=== PATIENT | male | born 1950 | race Two or more races ===

== ENCOUNTER 2023-08-07 11:30 | Outpatient (AMB) | payer MEDICAID, SELFPAY ==
--- NOTE | 2023-08-07 11:02 | HO.NEPHOV ---
Intake Vital Signs 08/07/23 11:07 Height 5 ft 4 in Weight 214 lb 4 oz BMI 36.8 BP 110/70 Blood Pressure Location Rt brachial Position Sitting Pulse 75 Pulse Source Pulse Oximeter Pulse Oximetry (%) 96 Oxygen Delivery Method Room Air Intake Visit Reasons: CKD - Confirmed appt Advertising Copy Writer Required: Yes Advertising Copy Writer Language: Lao Advertising Copy Writer Name: HEBERT - pt friend Accompanied by: Friend Allergies No Known Allergies Allergy (Verified 08/07/23 11:02) HPI HPI Comments History of Present Illness Details 72-year-old man with a history of diabetes mellitus hypertension and BPH is being seen for chronic disease. In 2020 he had serum creatinine 1.4. In December of 2021 creatinine bumped up a 3.9 with a potassium of 5.9. He was found to have BPH and underwent TURP. Serum creatinine is improved and recent creatinine is 2.2. Is here with his son. Today has no new complaints other than vague back pain on and off especially at night. No urinary symptoms. No dysuria urgency or hematuria. No leg edema. Assessment & Plan Assessment & Plan (1) CKD (chronic kidney disease) stage 3, GFR 30-59 ml/min: Code(s): N18.30 - Chronic kidney disease, stage 3 unspecified Plan: Chronic kidney disease due to the combination of obstructive uropathy and underlying hypertension peptic disease. The mild bump in the creatinine may be due to the use of her increased dose of Florentino inhibitors. However he needs a same dose for renal protection especially with microalbuminuria. I would continue with the Florentino inhibitor and monitor renal function periodically. Our nephrologists including NSAIDs. I have discussed this with the patient and his son. He would benefit from a SGLT 2 inhibitor. He has a history of BPH. Watch for urinary retention. (2) Diabetes mellitus: Comment: Goals of maintaining hemoglobin A1c less than 7%. Code(s): E11.9 - Type 2 diabetes mellitus without complications (3) HTN (hypertension): Comment: Blood pressure is well controlled. No orthostatic changes. Goal is met and blood pressure is 130/80. Continued FLORENTINO-inhibitor for renal protection. Avoid hypotension. Code(s): I10 - Essential (primary) hypertension Orders: Orders Creatinine Urine 1 Month N18.30 - Chronic kidney disease, stage 3 unspecified Creatinine 1 Month N18.30 - Chronic kidney disease, stage 3 unspecified Calcium 1 Month N18.30 - Chronic kidney disease, stage 3 unspecified Total Protein Urine Random 1 Month N18.30 - Chronic kidney disease, stage 3 unspecified Electrolytes 1 Month N18.30 - Chronic kidney disease, stage 3 unspecified Blood Urea Nitrogen 1 Month N18.30 - Chronic kidney disease, stage 3 unspecified PTHI 1 Month N18.30 - Chronic kidney disease, stage 3 unspecified Coding Level of Care Code Est Pt Level 4 (09932) Diagnoses CKD (chronic kidney disease) stage 3, GFR 30-59 ml/min N18.30 Diabetes mellitus E11.9 HTN (hypertension) I10 [facility] Medical History (Updated 08/07/23 @ 14:22 by Lul Mcgill MD) Mixed hyperlipidemia Type 2 diabetes mellitus Lower urinary tract infection Dyslipidemia Chronic fatigue Adenomatous colon polyp Family History Mother Hypertension Brother CKD (chronic kidney disease) Social History Alcohol intake: never Patient Tobacco Use Status: Current everyday Tobacco user Tobacco use type: Cigarette Cigarette Packs Per Day: 1 Cigarettes Per Day: 20 Results Reviewed Results Reviewed: As of 06/30/2023 hemoglobin 13.1 BUN 37 creatinine 2.2 potassium 5.1 calcium 9.6 LFTs were normal serum sodium 141 urine microalbumin creatinine ratio was 218.
[2023-08-07 11:07] VITALS: BP 110/70; PULSE 75; O2SAT 96; BMI 36.8
== END 2023-08-07 11:36 | disposition home or self-care (01) ==
LOC: HO.HKAS 11:30
PROVIDERS: PCP Internal Medicine; Visit Provider Internal Medicine Hypertension Specialist
DX: N18.30 Chronic kidney disease, stage 3 unspecified (principal); E11.9 Type 2 diabetes mellitus without complications; I12.9 Hypertensive chronic kidney disease with stage 1 through stage 4 chronic kidney disease, or unspecified chronic kidney disease
CPT/HCPCS: 99214

== ENCOUNTER → 2023-08-07 11:30 | Outpatient (BNVA) | payer MEDICARE, MEDICAID, SELFPAY | PROVIDERS: PCP Internal Medicine; Visit Provider Internal Medicine Hypertension Specialist | DX: N18.30 Chronic kidney disease, stage 3 unspecified (principal) ==

== ENCOUNTER 2023-11-01 14:13 | Outpatient (AMB) | payer MEDICAID, SELFPAY ==
[2023-11-01 14:14] VITALS: BP 112/54; PULSE 100; O2SAT 96; BMI 36.3
--- NOTE | 2023-11-01 14:14 | HO.NEPHOV ---
HPI HPI Comments History of Present Illness Details 72-year-old man with a history of diabetes mellitus hypertension and BPH is being seen for chronic disease. In 2020 he had serum creatinine 1.4. In December of 2021 creatinine bumped up a 3.9 with a potassium of 5.9. He was found to have BPH and underwent TURP. Serum creatinine is improved and recent creatinine is 2.2. Is here with his son. Today has no new complaints other than vague back pain on and off especially at night. No urinary symptoms. No dysuria urgency or hematuria. No leg edema. [facility] Medical History (Updated 08/07/23 @ 14:22 by Lul Mcgill MD) Mixed hyperlipidemia Type 2 diabetes mellitus Lower urinary tract infection Dyslipidemia Chronic fatigue Adenomatous colon polyp Surgical History (Updated 11/01/23 @ 14:19 by April Romero) Hx of cataract surgery (~09/2023) Family History Mother Hypertension Brother CKD (chronic kidney disease) Social History Alcohol intake: never Patient Tobacco Use Status: Current everyday Tobacco user Tobacco use type: Cigarette Cigarette Packs Per Day: 1 Cigarettes Per Day: 20 Vital Signs 11/01/23 14:14 Height 5 ft 4 in Weight 211 lb 6 oz BMI 36.3 BP 112/54 Blood Pressure Location Lt brachial Position Sitting Pulse 100 Pulse Source Pulse Oximeter Pulse Oximetry (%) 96 Oxygen Delivery Method Room Air Physical Exam Vital Signs: Last Vital Signs Pulse 100 11/01/23 14:14 BP 112/54 11/01/23 14:14 Pulse Ox 96 11/01/23 14:14 Oxygen Delivery Method Room Air 11/01/23 14:14 BMI result Body Mass Index 36.3 Const General: comfortable Nutritional Appearance: well nourished Orientation/consciousness: patient oriented x3 HEENT Head: No normal to inspection Mouth: moist mucous membranes Neck Neck: Yes supple and Yes no JVD Resp Auscultation: clear to auscultation bilaterally, no rales and rub present Cardio Jugular venous distension: no JVD Palpation: no palpable S3 and no palpable S4 Heart sounds: no rubs GI Palpation (GI): Soft to palpation and nontender Percussion: No Fluid wave present General: Yes no CVA tenderness Back/Spine/Pelvis Back: no CVA tenderness Skin General skin exam: no rashes or lesions noted Neuro General: patient oriented x3 Extrem General: Yes no pedal edema and No clubbing Assessment & Plan Assessment & Plan (1) CKD (chronic kidney disease) stage 3, GFR 30-59 ml/min: Code(s): N18.30 - Chronic kidney disease, stage 3 unspecified Plan: Chronic kidney disease due to the combination of obstructive uropathy and underlying hypertension Kidney disease. The mild bump in the creatinine may be due to the use of her increased dose of Florentino inhibitors. However he needs for renal protection especially with microalbuminuria. I would continue with the Florentino inhibitor and monitor renal function periodically. Avoid NSAIDs. He would benefit from a SGLT 2 inhibitor. He has a history of BPH. Watch for urinary retention. REcent PTH was 41 (2) Diabetes mellitus: Comment: Goals of maintaining hemoglobin A1c less than 7%. Code(s): E11.9 - Type 2 diabetes mellitus without complications Plan: . (3) HTN (hypertension): Comment: Blood pressure is well controlled. No orthostatic changes. Goal is met and blood pressure is 130/80. Continued FLORENTINO-inhibitor for renal protection. Avoid hypotension. Code(s): I10 - Essential (primary) hypertension Plan: BP well controlled LOw salt diet Orders: Orders Basic Metabolic Panel Today I10 - Essential (primary) hypertension, N18.30 - Chronic kidney disease, stage 3 unspecified Coding Level of Care Code Est Pt Level 4 (17362) Diagnoses CKD (chronic kidney disease) stage 3, GFR 30-59 ml/min N18.30 Diabetes mellitus E11.9 HTN (hypertension) I10 Results Reviewed Nephrology Results: No Data to Display
== END 2023-11-01 14:28 | disposition home or self-care (01) ==
LOC: HO.HKAS 14:13
PROVIDERS: PCP Internal Medicine; Visit Provider Internal Medicine Hypertension Specialist
DX: N18.30 Chronic kidney disease, stage 3 unspecified (principal); E11.9 Type 2 diabetes mellitus without complications; I10 Essential (primary) hypertension
CPT/HCPCS: 99214

== ENCOUNTER → 2023-11-01 14:13 | Outpatient (BNVA) | payer MEDICARE, MEDICAID, SELFPAY | PROVIDERS: PCP Internal Medicine; Visit Provider Internal Medicine Hypertension Specialist | DX: E11.22 Type 2 diabetes mellitus with diabetic chronic kidney disease (principal); I12.9 Hypertensive chronic kidney disease with stage 1 through stage 4 chronic kidney disease, or unspecified chronic kidney disease; N18.30 Chronic kidney disease, stage 3 unspecified | CPT/HCPCS: 99212 ==

== ENCOUNTER 2023-11-01 14:31 | Outpatient (REF) | payer MEDICARE, MEDICAID, SELFPAY ==
[2023-11-01 17:56] LABS: Creatinine Urine 172.51 mg/dL; Total Protein Urine Random 38 mg/dL
[2023-11-01 17:58] LABS: Anion Gap 11; Blood Urea Nitrogen 31 mg/dL; Carbon Dioxide 24 mmol/L; Chloride 113 mmol/L; Estimated Glomerular Filt Rate 30; Glucose Random 165 mg/dL; Potassium 4.9 mmol/L; Sodium 143 mmol/L
== END 2023-11-01 14:32 | disposition home or self-care (01) ==
LOC: HO.HKASLDS 14:31
PROVIDERS: Visit Provider Internal Medicine Hypertension Specialist
DX: I12.9 Hypertensive chronic kidney disease with stage 1 through stage 4 chronic kidney disease, or unspecified chronic kidney disease (principal); N18.30 Chronic kidney disease, stage 3 unspecified
CPT/HCPCS: 36415; 80048; 82570; 84156

== ENCOUNTER 2024-05-29 15:11 | Outpatient (AMB) | payer MEDICARE, MEDICAID, SELFPAY ==
[2024-05-29 15:20] VITALS: BP 100/50; PULSE 82; O2SAT 95; BMI 33.0
--- NOTE | 2024-05-29 15:20 | HO.NEPHOV ---
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 Accompanied by: Self / Same As Patient Allergies No Known Allergies Allergy (Verified 05/29/24 15:22) Medication List - Last Reconciled 05/29/24 by Lul Mcgill MD albuterol sulfate 90 mcg/actuation 2 puffs inhalation Q6H fenofibrate nanocrystallized 145 mg PO DAILY finasteride 5 mg PO DAILY lisinopril 10 mg PO DAILY metformin 500 mg PO BIDWMEAL metoprolol succinate ER 25 mg PO DAILY tamsulosin 0.4 mg orally BID; ON LICENSE OF [facility] Medical History (Updated 05/29/24 @ 15:29 by Lul Mcgill MD) Mixed hyperlipidemia Type 2 diabetes mellitus Lower urinary tract infection Dyslipidemia Chronic fatigue Adenomatous colon polyp Surgical History Hx of cataract surgery (~09/2023) Family History Mother Hypertension Brother CKD (chronic kidney disease) Social History Alcohol intake: never Patient Tobacco Use Status: Current everyday Tobacco user Tobacco use type: Cigarette Cigarette Packs Per Day: 1 Cigarettes Per Day: 20 Physical Exam Vital Signs: Last Vital Signs Pulse 82 05/29/24 15:20 BP 100/50 05/29/24 15:20 Pulse Ox 95 05/29/24 15:20 Oxygen Delivery Method Room Air 05/29/24 15:20 BMI result Body Mass Index 33.0 Results Reviewed Nephrology Results: Sodium 143 mmol/L 11/01/23 Potassium 4.9 mmol/L 11/01/23 Chloride 113 mmol/L 11/01/23 Carbon Dioxide 24 mmol/L 11/01/23 BUN 31 mg/dL 11/01/23 Creatinine 2.18 mg/dL 11/01/23 Calcium 9.0 mg/dL 11/01/23 Urine Creatinine 172.51 mg/dL 01/31/24 Assessment & Plan Assessment & Plan (1) CKD (chronic kidney disease) stage 3, GFR 30-59 ml/min: Code(s): N18.30 - Chronic kidney disease, stage 3 unspecified Category: Medical Plan: Chronic kidney disease due to the combination of obstructive uropathy and underlying hypertension Kidney disease. The mild bump in the creatinine may be due to the use of her increased dose of Florentino inhibitors. However he needs for renal protection especially with microalbuminuria. I would continue with the Florentino inhibitor and monitor renal function periodically. Avoid NSAIDs. He would benefit from a SGLT 2 inhibitor. He has a history of BPH. Watch for urinary retention. Check USG due to back discomfort REcent PTH was 41 (2) Diabetes mellitus: Comment: Goals of maintaining hemoglobin A1c less than 7%. Code(s): E11.9 - Type 2 diabetes mellitus without complications Category: Medical Plan: . (3) HTN (hypertension): Code(s): I10 - Essential (primary) hypertension Category: Medical Plan: BP is low DEcrease LISINOPRIL from 20 to 10 mg Orders: Orders US renal BI Today N18.30 - Chronic kidney disease, stage 3 unspecified Basic Metabolic Panel Today N18.30 - Chronic kidney disease, stage 3 unspecified Coding Level of Care Code Est Pt Level 4 (07444) Diagnoses CKD (chronic kidney disease) stage 3, GFR 30-59 ml/min N18.30 Diabetes mellitus E11.9 HTN (hypertension) I10
== END 2024-05-29 15:32 | disposition home or self-care (01) ==
LOC: HO.HKAE 15:11
PROVIDERS: PCP Internal Medicine; Visit Provider Internal Medicine Hypertension Specialist
DX: N18.30 Chronic kidney disease, stage 3 unspecified (principal); E11.9 Type 2 diabetes mellitus without complications; I10 Essential (primary) hypertension
CPT/HCPCS: 99214

== ENCOUNTER → 2024-05-29 15:11 | Outpatient (BNVA) | payer MEDICARE, MEDICAID, SELFPAY | PROVIDERS: PCP Internal Medicine; Visit Provider Internal Medicine Hypertension Specialist | DX: I12.9 Hypertensive chronic kidney disease with stage 1 through stage 4 chronic kidney disease, or unspecified chronic kidney disease (principal); E11.22 Type 2 diabetes mellitus with diabetic chronic kidney disease; N18.30 Chronic kidney disease, stage 3 unspecified | CPT/HCPCS: 99212 ==

== ENCOUNTER 2024-10-30 14:44 | Outpatient (AMB) | payer MEDICARE, MEDICAID, SELFPAY ==
[2024-10-30 14:38] VITALS: BP 122/72; PULSE 82; O2SAT 98; BMI 34.7
--- NOTE | 2024-10-30 14:38 | HO.NEPHOV_ITS ---
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 In 2020 he had serum creatinine 1.4. In December of 2021 creatinine bumped up a 3.9 with a potassium of 5.9. He was found to have BPH and underwent TURP. Serum creatinine is improved and recent creatinine is 2.2. Today has no new complaints other than vague back pain on and off especially at night- no change since last visit. No urinary symptoms. No dysuria urgency or hematuria. No leg edema. No specific complaints today. PEND[facility] SALE TO [facility] Medical History (Updated 05/29/24 @ 15:29 by Lul Mcgill MD) Mixed hyperlipidemia Type 2 diabetes mellitus Lower urinary tract infection Dyslipidemia Chronic fatigue Adenomatous colon polyp Surgical History Hx of cataract surgery (~09/2023) Family History Mother Hypertension Brother CKD (chronic kidney disease) Social History Alcohol intake: never Patient Tobacco Use Status: Current everyday Tobacco user Tobacco use type: Cigarette Cigarette Packs Per Day: 1 Cigarettes Per Day: 20 Physical Exam Vital Signs: Last Vital Signs Pulse 82 10/30/24 14:38 BP 122/72 01/29/25 14:38 Pulse Ox 98 10/30/24 14:38 Oxygen Delivery Method Room Air 10/30/24 14:38 BMI result Body Mass Index 34.7 Const General: comfortable Nutritional Appearance: well nourished Orientation/consciousness: patient oriented x3 HEENT Head: No normal to inspection Mouth: moist mucous membranes Neck Neck: Yes supple and Yes no JVD Resp Auscultation: clear to auscultation bilaterally, no rales and rub present Cardio Jugular venous distension: no JVD Palpation: no palpable S3 and no palpable S4 Heart sounds: no rubs GI Palpation (GI): Soft to palpation and nontender Percussion: No Fluid wave present General: Yes no CVA tenderness Back/Spine/Pelvis Back: no CVA tenderness Skin General skin exam: no rashes or lesions noted Neuro General: patient oriented x3 Extrem General: Yes no pedal edema and No clubbing Results Reviewed Nephrology Results: Sodium 143 mmol/L 11/01/23 Potassium 4.9 mmol/L 11/01/23 Chloride 113 mmol/L 11/01/23 Carbon Dioxide 24 mmol/L 11/01/23 BUN 31 mg/dL 11/01/23 Creatinine 2.18 mg/dL 11/01/23 Calcium 9.0 mg/dL 11/01/23 Urine Creatinine 172.51 mg/dL 11/01/23 Assessment & Plan Assessment & Plan (1) CKD (chronic kidney disease) stage 3, GFR 30-59 ml/min: Code(s): N18.30 - Chronic kidney disease, stage 3 unspecified Category: Medical Plan: Chronic kidney disease due to the combination of obstructive uropathy and underlying hypertension Kidney disease. Overall renal function stable. Recent ultrasonogram did not reveal any evidence of obstruction. Keep AARON inhibitors for renal protection especially with microalbuminuria. monitor renal function periodically. Avoid NSAIDs. He would benefit from a SGLT 2 inhibitor. Recent ultrasonogram revealed a left-sided cyst. Possibility of a mild complex cyst. We will repeat ultrasonogram in the next 6-12 months for follow-up. If there is any changes in the cyst I would for him for urology. (2) Diabetes mellitus: Comment: Goals of maintaining hemoglobin A1c less than 7%. Code(s): E11.9 - Type 2 diabetes mellitus without complications Category: Medical Plan: . (3) HTN (hypertension): Code(s): I10 - Essential (primary) hypertension Category: Medical Plan: Blood pressure is well controlled Continue LISINOPRIL 10 mg daily Stay on low-sodium diet Orders: Orders Basic Metabolic Panel 3 Months N18.30 - Chronic kidney disease, stage 3 unspecified Complete Blood Count no Diff 3 Months N18.30 - Chronic kidney disease, stage 3 unspecified Coding Level of Care Code Est Pt Level 4 (62270) Diagnoses CKD (chronic kidney disease) stage 3, GFR 30-59 ml/min N18.30 Diabetes mellitus E11.9 HTN (hypertension) I10
--- OUTSIDE RECORDS SUMMARY | 2024-10-30 16:56 | XMS_ITS | Clinical Summary ---
Author Organization [facility] Address [address] [place] [address] Phone Care Team Providers Care Rotary Soil Stabilizer Name Role Phone Rakesh Marie MD Primary Care Provider Unavail able Allergies No known active allergies Medications finasteride (PROSCAR) 5 MG tablet Take 5 mg by mouth in the morning. 09/30/2016 Active tamsulosin (FLOMAX) 0.4 MG 24 hr capsule Take 0.4 mg by mouth 1 (one) time each day Active fenofibrate (TRICOR) 145 MG tablet Take 145 mg by mouth 1 (one) time each day Active metoprolol succinate XL (TOPROL XL) 25 MG 24 hr tablet Take 25 mg by mouth 1 (one) time each day Do not crush or chew. Active metFORMIN (GLUCOPHAGE) 500 MG tablet Take 1 tablet (500 mg total) by mouth in the morning and 1 tablet (500 mg total) in the evening. Take with meals. 60 tablet 11 05/17/2022 Active Active Problems Problem Noted Date Diagnosed Date Microalbuminuria 11/02/2016 Essential hypertension 09/25/2016 Hyperosmolarity 09/25/2016 Resolved Problems Problem Noted Date Diagnosed Date Resolved Date Adenomatous polyp of colon 08/12/2020 0 02/24/2022 Overview (02/24/2022): Last Assessment & Plan: A colonoscopy will be scheduled based on current indication. The indications, prep, alternatives and the procedure were thoroughly explained. There is no contraindication to colonoscopy. All questions were answered. The potential risks including but not limited to bleeding, infection, and perforation were also explained. Covid screening per protocol. Will call daughter to schedule Lesion of conjunctiva 12/07/20162021 Mixed hyperlipidemia 11/02/2016 022 Benign prostatic hyperplasia 09/28/2016 02/24/2022 Fever 09/28/2016 02/24/2022 Metabolic acidosis, increased anion gap (IAG) 09/28/20 16 02/24/2022 Hyperglycemia 09/27/2016 02/24/2022 Type 2 diabetes mellitus 09/27/2016 Chronic fatigue 09/25/2016 02/24/2022 Dyslipidemia 09/25/2016 02/24/2022 Immunizations Name Administration Dates Next Due Influenza (IM) Preservative Free 09/30/2016 Influenza Split High Dose Preservative Free IM 0 06/27/2017 Family History Medical History Relation Comments Kidney disease Brother Hypertension Mother Relation Status Comments Brother Father Mother Social History Tobacco Use Types Packs/Day Years Used Date Smoking Tobacco: Every Day Cigarettes Smokeless Tobacco: Never Tobacco Cessation:Ready to Q uit: Not Asked; Counseling Given: Not Answered Alcohol Use Standard Drinks/Week Comments Never 0 (1 standard drink = 0.6 oz pur e alcohol) Sex and Gender Information Value Date Recorded Sex Assigned at Not on file Legal Sex Male 12:49 PM EDT Gender Identity Not on file Sexual Orientation Not on file Last Filed Vital Signs Vital Sign Reading Time Taken Comments Blood Pressure 120/68 09/06/2022 2:39 PM EST Pulse 98 09/06/2022 2:39 PM EST Temperature - - Respiratory Rate - - Oxygen Saturation 94% 09/06/2022 2:39 PM EST Inhaled Oxygen Concentration - - Weight 90.7 kg (200 lb) 05/17/2022 3:57 PM EDT Height - - Body Mass Index - - Plan of Treatment Health Maintenance Due Date Last Done Comments Pneumococcal Vaccine: 65+ Years (1 of 2 - PCV) 1956 Colorectal Cancer Screening: Annual FOBT 1998 Colorectal Cancer Screening: Colonoscopy 1998 Colorectal Cancer Screening: Sigmoidoscopy 1998 Influenza Vaccine (#1) 2024 7, 09/30/2016 Hepatitis B Vaccine Aged Out No longe r eligible based on patient's age to complete this topic Insurance MEDICAID [place] [employer] MEDICARE [place]ICAID [place] [employer] MEDICARE Care Teams Rotary Soil Stabilizer Relationship Specialty Start Date End Date Rakesh Marie MD [address] [place] [address] PCP - General Internal Medicine 02/11/22
--- OUTSIDE RECORDS SUMMARY | 2024-10-30 16:56 | XMS_ITS | Clinical Summary ---
Author Organization Formerly [facility] Address [address] [place] [address] Care Team Providers Care Network Engineer Administrator Name Role Phone Raeksh Marie MD Primary Care Provider [phone] Rakesh Marie MD Unavailable [phone] Allergies No known active allergies Medications Medication Sig Dispensed Refills Start Date End Date Status albuterol (PROVENTIL HFA; VENTOLIN HFA) 108 (90 BASE) MCG/ACT inhalerIndications:Hy perglycemia Inhale 2 puffs 4 times daily (every 6 hours) as needed for wheezing. 1 Inhaler 1 09/30/2016 Active metFORMIN (GLUCOPHAGE) 1000 MG tabletIndications:Hyp erglycemia Take 1 tablet (1,000 mg total) by mouth 2 (two) times a day with meals. 60 tablet 1 09/30/2016 Active atenolol (TENORMIN) 50 MG tabletIndications:Hyp erglycemia Take 1 tablet (50 mg total) by mouth daily. 30 tablet 0 09/30/2016 Active fenofibrate (TRICOR) 145 MG tabletIndications:Hyp erglycemia Take 1 tablet (145 mg total) by mouth daily. 30 tablet 0 09/30/2016 Active levoFLOXacin (LEVAQUIN) 500 MG tabletIndications:Hyp erglycemia Take 1 tablet (500 mg total) by mouth every 24 hours around the clock. 6 tablet 0 09/30/2016 Active finasteride (PROSCAR) 5 MG tabletIndications:Hyp erglycemia Take 1 tablet (5 mg total) by mouth daily. 30 tablet 0 09/30/2016 Active tamsulosin (FLOMAX) 0.4 MG capsuleIndications:Hy perglycemia Take 1 capsule (0.4 mg total) by mouth every evening after dinner. 30 capsule 0 09/30/2016 Active sitaGLIPtin (JANUVIA) 100 MG tabletIndications:Hyp erglycemia Take 1 tablet (100 mg total) by mouth daily. 30 tablet 0 09/30/2016 Active insulin glargine (LANtus SOLOSTAR) 100 units/mL pen injectionIndications: Hyperglycemia Inject 0.24 mL (24 Units total) under the skin nightly. 7.2 mL 1 09/30/2016 Active choline fenofibrate (TRILIPIX) 45 MG capsule Take 45 mg by mouth daily. Active tpyahi-ahvnjvsln-xjwd esium sulfates (Suprep Bowel Prep Kit) 17.5-3.13-1.6 GM/177ML Solution solutionIndications:A denomatous polyp of colon, unspecified part of colon Take 177 mL by mouth twice daily (every 12 hours). 177 mL 08/13/2020 Active Active Problems Problem Noted Date Diagnosed Date Adenomatous polyp of colon 08/12/2020 Assessment & Plan (08/13/2020 3:22 PM EST): A colonoscopy will be scheduled based on current indication. The indications, prep, alternatives and the procedure were thoroughly explained. There is no contraindication to colonoscopy. All questions were answered. The potential risks including but not limited to bleeding, infection, and perforation were also explained. Covid screening per protocol. Will call daughter to schedule Metabolic acidosis, increased anion gap 09/28/20 16 Essential hypertension 09/28/2016 BPH (benign prostatic hyperplasia) 09/28/2016 Hyperlipidemia 09/28/2016 Hyperglycemia 09/27/2016 Type 2 diabetes mellitus 09/27/2016 Resolved Problems Problem Noted Date Diagnosed Date Resolved Date Fever 09/28/2016 12/14/2023 Immunizations Name Administration Dates Next Due Influenza Inactivated/Split Preservative Free IM 09/30/2016 Family History Relation Name Status Comments Father Mother Social History Tobacco Use Types Packs/Day Years Used Date Smoking Tobacco: Every Day Cigarettes Smokeless Tobacco: Never Alcohol Use Standard Drinks/Week Comments No 0 (1 standard drink = 0.6 oz pur e alcohol) Sex and Gender Information Value Date Recorded Sex Assigned at Not on file Gender Identity Not on file Sexual Orientation Not on file Last Filed Vital Signs Vital Sign Reading Time Taken Comments Blood Pressure 112/64 08/13/2020 2:55 PM EST Pulse 64 09/30/2016 9:48 AM EST Temperature 35.9 ??C (96.7 ??F) 08/13/2020 2:55 PM ES T Respiratory Rate 15 10/24/2016 2:04 PM EST Oxygen Saturation 94% 09/30/2016 8:21 AM EST Inhaled Oxygen Concentration - - Weight 94.3 kg (208 lb) 08/13/2020 2:55 PM EST Height 165.1 cm (5' 5 ) 08/13/2020 2:55 PM EST Body Mass Index 34.61 08/13/2020 2:55 PM EST Plan of Treatment Health Maintenance Due Date Last Done Comments Hepatitis C Virus Screening 1949 Foot Exam 1959 Lipid Panel 1959 Ophthalmology Exam 1959 Microalbumin/Creatinine Ratio Urine 1967 DTaP/Tdap/Td Vaccines (1 - Tdap) 1968 Pneumococcal Vaccines 50+ (1 of 2 - PCV) 1968 Colonoscopy 1994 Zoster (Shingles) Vaccine (1 of 2) 1999 Hemoglobin A1C 03/29/2017 09/28/2016 Creatinine with GFR 09/30/2017 09/30/2016, 09/29/2016, 09/28/2016, Additional history exists Influenza Vaccine 05/02/2024 09/30/2016 COVID-19 Vaccine ( - 2023-25 season) 2024 RSV Vaccine 60 years and older and Patients (1 - 1-dose 75+ series) 2024 Hepatitis B Vaccines Aged Out No long er eligible based on patient's age to complete this topic Procedures Procedure Name Priority Date/Time Associated Diagnosis Comments BASIC METABOLIC PANEL Routine 09/30/2016 6:03 AM EST HEMOGLOBIN A1C Routine 09/28/2016 4:51 AM EST from Last 3 Months or Most Recently Relevant to Health Maintenance Results * Basic Metabolic Panel (09/30/2016 6:03 AM EST) Glucose 78 65 - 99 mg/dL [facility] Comment:Fasting: <100 mg/dL, Non-Fasting: <200 mg/dL (ADA 2005) Blood Urea Nitrogen (BUN) 16 8 - 21 mg/dL [facility] Creatinine 1.1 0.5 - 1.3 mg/dL [facility] eGFR 67 >59 [facility] Comment:MDRD in mL/min/1.73 sq meters. GFR - 81 >59 [facility] Comment:MDRD in mL/min/1.73 sq meters. Sodium 141 136 - 145 mmol/L [facility] Potassium 3.6 3.4 - 5.3 mmol/L [facility] Chloride 103 98 - 107 mmol/L [facility] CO2 24 22 - 33 mmol/L [facility] Anion Gap 14 7 - 17 [facility] Calcium 8.8 8.7 - 10.5 mg/dL [facility] BUN/Creatinine Ratio 15 10.0 - 25.0 Ratio [facility] Blood specimen (specimen) Blood specimen / Unknown 09/30/2016 6:03 AM EST 09/30/2016 6:49 AM EST Nayana Lozano MD LAB BLOOD ORDERABLE S [facility] * (ABNORMAL) Hemoglobin A1c (09/28/2016 4:51 AM EST) Hemoglobin A1C 12.0(H) <5.7 % [facility] Comment: A1c% ? Interpretation 5.7 - 6.0 ?Increase risk of diabetes 6.1 - 6.4 ?Higher risk of diabetes > or = 6.5 ?? Consistent with diabetes Diabetes Care, 33(Supp 1):S1-S61, 2010 Blood specimen (specimen) Blood specimen / Unknown 09/28/2016 4:51 AM EST 09/28/2016 5:14 AM EST Daisy Knutson MD LAB BLOOD ORDERABL ES [facility] from Last 3 Months or Most Recently Relevant to Health Maintenance Advance Directives * Full Code (Latest Code Status on File) Date Activated Date Inactivated Comments 09/28/2016 1:36 AM 09/30/2016 3:43 PM Care Teams Network Engineer Administrator Relationship Specialty Start Date End Date Rakesh Marie MD PCP - General 09/27/16 Rakesh Marie MD [address] [place] [address] PCP - APNCT [place] Medicare Attributed 10/02/23
--- OUTSIDE RECORDS SUMMARY | 2024-10-30 16:56 | XMS_ITS | Clinical Summary ---
Author Organization [address] Address [address] [place] [phone] Care Team Providers Care Manufacturing Controller Name Role Phone Rakesh Marie MD Primary Care Provider [phone] Allergies No known active allergies Medications albuterol (PROAIR HFA) 90 mcg/actuation HFAA Inhale 2 puffs into the lungs 4 (four) times daily as needed. 0 6 Active atenolol (TENORMIN) 50 MG tablet take 1 tablet by mouth once daily 0 6 Active blood sugar diagnostic (ONETOUCH ULTRA TEST) Strp TEST 4 TIMES DAILY 0 7 Active fenofibrate (TRICOR) 145 MG tablet take 1 tablet by mouth once daily 0 6 Active fenofibric acid - choline (TRILIPIX) 135 mg CpDR 0 7 Active finasteride (PROSCAR) 5 mg tablet take 1 tablet by mouth at bedtime 0 6 Active insulin glargine (LANTUS SOLOSTAR) 100 unit/mL (3 mL) InPn inject 16 units subcutaneously at bedtime (DISCARD EACH OPEN PEN AFTER 28 DAYS) 0 6 Active meloxicam (MOBIC) 15 MG tablet take 1 tablet by mouth once daily 0 6 Active metFORMIN (GLUCOPHAGE) 1000 MG tablet Take 500 mg by mouth 2 (two) times daily with breakfast and dinner. 0 7 Active pen needle, diabetic (BD INSULIN PEN NEEDLE UF MINI) 31 gauge x 3/16 Ndle use with LANTUS at bedtime 0 6 Active sitaGLIPtin (JANUVIA) 100 MG Tab take 1 tablet by mouth once daily 0 7 Active tamsulosin (FLOMAX) 0.4 mg Cp24 24 hr capsule take 1 capsule by mouth once daily 0 7 Active Active Problems Problem Noted Date Diagnosed Date Conjunctival lesion - Left Eye 12/07/2016 Immunizations Name Administration Dates Next Due Influenza, high-dose, split virus, trivalent,(65Yr+),injectable, preservative free 06/27/2017 Family History Medical History Relation Name Comments Abnormal EKG Mother Hypertension Mother Relation Name Status Comments Mother Social History Tobacco Use Types Packs/Day Years Used Date Smoking Tobacco: Every Day Cigarettes Smokeless Tobacco: Never Alcohol Use Standard Drinks/Week Comments No 0 (1 standard drink = 0.6 oz pur e alcohol) Sex and Gender Information Value Date Recorded Sex Assigned at Not on file Legal Sex Male 11:52 AM EST Gender Identity Not on file Sexual Orientation Not on file Last Filed Vital Signs Vital Sign Reading Time Taken Comments Blood Pressure 110/66 01/11/2017 10:34 AM EDT Pulse 65 01/11/2017 10:34 AM EDT Temperature 36.7 ??C (98.1 ??F) 01/11/2017 10:34 AM E DT Respiratory Rate 19 01/11/2017 10:34 AM EDT Oxygen Saturation 98% 01/11/2017 10:34 AM EDT Inhaled Oxygen Concentration - - Weight 92.6 kg (204 lb 3.2 oz) 01/11/2017 10:34 AM EDT Height 165 cm (5' 4.96 ) 12/07/2016 10:25 AM EST Body Mass Index 34.02 12/07/2016 10:25 AM EST Plan of Treatment Health Maintenance Due Date Last Done Comments HIV screening 1962 Hepatitis C screening 1967 Tetanus adult (Td q 10,TDAP once) 1969 Lipid disorder screening 1989 Colon cancer screening, Colonoscopy 1994 Diabetes screening 1994 Shingles vaccine (Shingrix) (1 of 2 - Shingrix (RZV) 2 Dose Standard Series) 1999 Pneumo Vaccine 65+ (1 of 1 - PCV) 2014 Influenza vaccine 05/02/2024 06/27/2017 Covid-19 vaccine series ( - 2023-25 season) 2024 RSV Discussion (1 - 1-dose 7 5+ series) 2024 Meningococcal Vaccine Aged Out No mayra ginger eligible based on patient's age to complete this topic Insurance [place] Member Subscriber Plan / Payer (Ef fective 2016-Present) Name:Basia Juan Member ID:[id number] Relation to Subscriber:Self Name:Basia Juan Subscriber ID:[id number] Payer ID:[id number] Group ID:Not on file Type:Not on file Address: [address] [address] [place] Care Teams Manufacturing Controller Relationship Specialty Start Date End Date Rakesh Marie MD [address] [place] [address] PCP - General Internal Medicine 11/30/16
--- OUTSIDE RECORDS SUMMARY | 2024-10-30 16:56 | XMS_ITS | Encounter Summary ---
Author Organization [facility] Address [address] [place] [address] Care Team Providers Care Coating And Embossing Unit Operator Name Role Phone Rakehs Marie MD Primary Care Provider [phone] Rakesh Marie MD Unavailable [phone] Encounter Details Date Type Department Care Team (Late st Contact Info) Description 10/25/2016 Scanned Document [facility] [address] [place] [phone] Provider, Generic Social History Tobacco Use Types Packs/Day Years Used Date Smoking Tobacco: Every Day Cigarettes Alcohol Use Standard Drinks/Week Comments No 0 (1 standard drink = 0.6 oz pur e alcohol) Sex and Gender Information Value Date Recorded Sex Assigned at Not on file Gender Identity Not on file Sexual Orientation Not on file documented as of this encounter Plan of Treatment Not on file documented as of this encounter Visit Diagnoses Not on filedocumented in this encounter Care Teams Coating And Embossing Unit Operator Relationship Specialty Start Date End Date Rakesh Marie MD PCP - General 09/27/16 Rakesh Marie MD [address] [place] [address] PCP - APNCT [place] Medicare Attributed 10/02/23 documented as of this encounter
--- OUTSIDE RECORDS SUMMARY | 2024-10-30 16:56 | XMS_ITS | Clinical Summary ---
Author Organization [facility] Address [address] [place] [address] Care Team Providers Care Cathode Maker Name Role Phone Rakesh Marie MD Primary Care Provider [phone] Allergies No known active allergies Medications Medication Sig Dispensed Refills Start Date End Date Status finasteride (PROSCAR) 5 MG tablet take 1 tablet by mouth at bedtime 0 09/15/2016 Active tamsulosin (FLOMAX) 0.4 MG CAPS take 1 capsule by mouth once daily 0 08/15/2016 Active Choline Fenofibrate (TRILIPIX PO) Take by mouth. 0 Active lisinopril (PRINIVIL,ZESTRIL) tablet 2.5 mgIndications:Type 2 diabetes mellitus with hyperosmolar nonketotic hyperglycemia (HCC),Essential hypertension,Microal buminuria Take 1 tablet (2.5 mg total) by mouth daily. 90 tablet 3 11/02/2016 Active Additional Information Patient taking differently: 5 mgOral Daily, Reported on 06/30/2017 Insulin Pen Needle (B-D UF III MINI PEN NEEDLES) 31G X 5 MM MISC 1 each by Does not apply route every night at bedtime. 100 each 3 12/23/2016 Active ONETOUCH DELICA LANCETS 33G MISC Testing 3 x daily dx e11.65 300 each 3 10/27/2017 Active ATENOLOL PO Take by mouth. 0 Active glucose blood (ONETOUCH VERIO) test stripIndications:Typ e 2 diabetes mellitus with hyperosmolar nonketotic hyperglycemia (HCC) Testing 3 x daily dx e11.65 300 each 3 02/23/2018 Active atorvastatin (LIPITOR) tablet 20 mg Take 1 tablet (20 mg total) by mouth daily. 90 tablet 3 05/17/2018 Active Blood Glucose Monitoring Suppl (Exabre VERIO) w/Device KITIndications:Type II diabetes mellitus with complication, uncontrolled 1 each by Does not apply route daily. 1 kit 0 05/13/2019 Active glucose blood (ONETOUCH VERIO) test strip Patient testing 2x daily 200 each 3 05/17/2019 Active SITagliptin-metFORMI N (JANUMET) 50-500 MG per tablet take 1 tablet by mouth twice a day with food 180 tablet 3 09/02/2019 Active Active Problems Problem Noted Date Diagnosed Date Mixed hyperlipidemia 11/02/2016 Microalbuminuria 11/02/2016 Chronic fatigue 09/25/2016 Type 2 diabetes mellitus wit h hyperosmolar nonketotic hyperglycemia 09/25/2016 Dyslipidemia 09/25/2016 Essential hypertension 09/25/2016 Family History Medical History Relation Name Comments Heart disease Mother Relation Name Status Comments Mother Social History Tobacco Use Types Packs/Day Years Used Date Smoking Tobacco: Every Day Cigarettes 1 Smokeless Tobacco: Never Sex and Gender Information Value Date Recorded Sex Assigned at Male 09/23/2020 11:43 AM EST Gender Identity Not on file Sexual Orientation Not on file Job Start Date Occupation Industry Not on file Not on file Not on file Last Filed Vital Signs Vital Sign Reading Time Taken Comments Blood Pressure 139/77 10/01/2020 10:50 AM EST Pulse 59 10/01/2020 10:50 AM EST Temperature 36.1 ??C (97 ??F) 10/01/2020 10:50 AM EST Respiratory Rate 10 10/01/2020 10:50 AM EST Oxygen Saturation 94% 10/01/2020 10:50 AM EST Inhaled Oxygen Concentration - - Weight 93.4 kg (206 lb) 10/01/2020 8:48 AM EST Height 162.6 cm (5' 4 ) 10/01/2020 8:48 AM EST Body Mass Index 35.36 10/01/2020 8:48 AM EST Plan of Treatment Health Maintenance Due Date Last Done Comments Hepatitis C Screening 1949 COVID-19 Vaccine (#1) 04[birth year]04/1950 Pneumococcal Vaccine (1 of 2 - PCV) 1955 Depression Screening 1961 BMI Counseling 1967 Preventative Health Evaluation 1967 Tobacco Cessation Counseling 1967 DTap / Tdap / Td (1 - Tdap) 1968 Shingrix-Zoster Vaccine (1 of 2) 1999 Abdominal Aortic Aneurysm (AAA) Screening 2014 Fall Risk Assessment 2014 Diabetes: Foot Exam 2017 2016, 7 Diabetes: Eye Exam (No Retinopathy) 2018 2016 Diabetes: Microalbumin Test 02/14/2019 02/14/2018, 0 10/11/2016 Hemoglobin A1C Due 11/17/2019 05/17/2019, 0 02/23/2018, 10/27/2017, Additional history exists Influenza Vaccine (#1) 2024 06/27/2017, 2015 RSV Adult > 60+ Yrs or (1 - 1-dose 75+ series) 2024 Colon Cancer Screening (Colonoscopy) 10/01/2030 10/01/2020 Hepatitis B Vaccines Aged Out No long er eligible based on patient's age to complete this topic RSV Ped < 20 months Aged Out No longe r eligible based on patient's age to complete this topic Advance Directives For more information, please contact: [phone] Documents on File Type Date Recorded Patient Saw Filer Expl anation Advance Directive and Living Will 08/09/2016 12:18 PM Latest Code Status on File Code Status Date Activated Date Inactivated Comments Full Code 10/01/2020 10:20 AM 10/01/2020 5:14 PM Th is code status was ascertained in the following way: discussion with patient. Code Status History Code Status Date Activated Date Inactivated Comments Full Code 09/25/2016 8:23 PM 09/26/2016 9:24 PM Thi s code status was ascertained in the following way: discussion with patient. Care Teams Cathode Maker Relationship Specialty Start Date End Date Rakesh Marie MD PCP - General Internal Medicine 08/09/16
--- OUTSIDE RECORDS SUMMARY | 2024-10-30 16:56 | XMS_ITS | Encounter Summary ---
Author Organization [facility] Address [address] [place] [address] Care Team Providers Care Director Biologics Name Role Phone Rakesh Marie MD Primary Care Provider [phone] Rakesh Marie MD Unavailable [phone] Encounter Details Date Type Department Care Team (Late st Contact Info) Description 02/15/2016 Scanned Document [facility] 80 [facility] [address] [place] [phone] Provider, Generic Social History Tobacco Use Types Packs/Day Years Used Date Smoking Tobacco: Never Assessed Sex and Gender Information Value Date Recorded Sex Assigned at Not on file Gender Identity Not on file Sexual Orientation Not on file documented as of this encounter Plan of Treatment Not on file documented as of this encounter Procedures Procedure Name Priority Date/Time Associated Diagnosis Comments LAB RESULT 02/15/2016 documented in this encounter Results * LAB RESULT (02/15/2016) Narrative 02/15/2016 Ordered by an unspecified provider. Generic Provider HX AMB PROCEDURES documented in this encounter Visit Diagnoses Not on filedocumented in this encounter Care Teams Director Biologics Relationship Specialty Start Date End Date Rakesh Marie MD PCP - General 09/27/16 Rakesh Marie MD [address] [place] [address] PCP - APNCT [place] Medicare Attributed 10/02/23 documented as of this encounter
--- OUTSIDE RECORDS SUMMARY | 2024-10-30 16:56 | XMS_ITS | Clinical Summary ---
Author Organization [facility] Address [address] [place] [address] Care Team Providers Care Biology Laboratory Assistant Name Role Phone Rakesh Marie MD Primary Care Provider [phone] Surgical History Surgery Date Site/Laterality Comments COLONOSCOPY PROCEDURE:COLONOSCOPY COLONOSCOPY 10/01/2020 N/A PROCEDURE:COLONOSCOPY;COMMENT:Procedure: COLONOSCOPY; Surgeon: Tony Sue MD; Location: [facility]; Service: Gastroenterology; Laterality: N/A; Medical History Medical History Date Comments BPH (benign prostatic hyperplasia) DX:BPH (benign prostatic hyperplasia) Hypertension DX:Hypertension Hyperlipidemia DX:Hyperlipidemi a Type 2 diabetes mellitus (CMS/HCC) DX:Type 2 diabetes mellitus (HCC) Family History Medical History Relation Name Comments Heart disease Mother Relation Name Status Comments Mother Social History Tobacco Use Types Packs/Day Years Used Date Smoking Tobacco: Every Day Cigarettes Smokeless Tobacco: Never Sex and Gender Information Value Date Recorded Sex Assigned at Not on file Gender Identity Not on file Sexual Orientation Not on file Obstetrics History Plan of Treatment Health Maintenance Due Date Last Done Comments Diabetes: Annual GFR (Glomer ular Filtration Rate) 1949 Pneumococcal Vaccine: 65+ Ye ars (1 of 2 - PCV) 1955 Diabetes: Annual Foot Exam 1959 Diabetes: Annual Retina Eye Exam 1959 DTaP,Tdap,and Td Vaccines (1 - Tdap) 1968 Zoster Vaccines (1 of 2) 1999 Abdominal Aortic Aneurysm (A AA) Screen 08/30/2022 Cholesterol Screening (Lipid Panel) 08/30/2022 Colorectal Cancer Screening: Colonoscopy 08/30/2022 Depression Screening 08/30/2022 Falls Risk Assessment 08/30/2022 Hepatitis C Screening 08/30/2022 Social Influencers of Health Screening 08/30/2022 Diabetes: Annual Urine Albumin-Creatinine Ratio (uACR) 09/19/2022 Diabetes: Blood Sugar Contro l Test (HGBA1C) 09/19/2022 Hypertension/CHF/CAD Annual BMP Blood Test 09/19/2022 COVID-19 Vaccine ( - 2023-2 5 season) 2024 Influenza Vaccine (#1) 2024 RSV Immunization Patients 60 + Years Old (1 - 1-dose 75+ series) 2024 HIB Vaccines Aged Out No longer eligi ble based on patient's age to complete this topic HPV Vaccines Aged Out No longer eligi ble based on patient's age to complete this topic Hepatitis A Vaccines Aged Out No long er eligible based on patient's age to complete this topic Hepatitis B Vaccines Aged Out No long er eligible based on patient's age to complete this topic IPV Vaccines Aged Out No longer eligi ble based on patient's age to complete this topic MMR Vaccines Aged Out No longer eligi ble based on patient's age to complete this topic Meningococcal ACWY Vaccine Aged Out N o longer eligible based on patient's age to complete this topic RSV Immunization Patients Un zora 20 months Aged Out No longer eligible b ased on patient's age to complete this topic Varicella Vaccines Aged Out No longer eligible based on patient's age to complete this topic Care Teams Biology Laboratory Assistant Relationship Specialty Start Date End Date Rakesh Marie MD [address] [place] [phone] PCP - General Internal Medicine 08/09/16
== END 2024-10-30 14:54 | disposition home or self-care (01) ==
LOC: HO.HKAE 14:44
PROVIDERS: PCP Internal Medicine; Visit Provider Internal Medicine Hypertension Specialist
DX: N18.30 Chronic kidney disease, stage 3 unspecified (principal); E11.9 Type 2 diabetes mellitus without complications; I10 Essential (primary) hypertension
CPT/HCPCS: 99214

== ENCOUNTER → 2024-10-30 | Outpatient (BNVA) | payer MEDICARE, MEDICAID, SELFPAY | PROVIDERS: PCP Internal Medicine; Visit Provider Internal Medicine Hypertension Specialist | DX: I12.9 Hypertensive chronic kidney disease with stage 1 through stage 4 chronic kidney disease, or unspecified chronic kidney disease (principal); E11.22 Type 2 diabetes mellitus with diabetic chronic kidney disease; N18.30 Chronic kidney disease, stage 3 unspecified; Z79.899 Other long term (current) drug therapy | CPT/HCPCS: 99212 ==

== ENCOUNTER 2025-01-22 15:09 | Outpatient (AMB) | payer MEDICARE, MEDICAID, SELFPAY ==
[2025-01-22 15:00] VITALS: BP 120/68; PULSE 96; O2SAT 96; BMI 33.5
--- NOTE | 2025-01-22 15:00 | HO.NEPHOV ---
Vital Signs 01/22/25 15:00 Height 5 ft 4 in Weight 195 lb 6 oz BMI 33.5 BP 120/68 Blood Pressure Location Lt brachial Position Sitting Pulse 96 Pulse Source Pulse Oximeter Pulse Oximetry (%) 96 Oxygen Delivery Method Room Air Intake Visit Reasons: 3mon follow-up w/labs/Conf Allergies No Known Allergies Allergy (Verified 01/22/25 15:05) Medication List - Last Reconciled 01/22/25 by Lul Mcgill MD albuterol sulfate 90 mcg/actuation 2 puffs inhalation Q6H fenofibrate nanocrystallized 145 mg PO DAILY finasteride 5 mg PO DAILY lisinopril 10 mg PO DAILY metformin 500 mg PO BIDWMEAL metoprolol succinate ER 25 mg PO DAILY tamsulosin 0.4 mg orally BID; HPI Comments Details: 74-year-old man with a history of diabetes mellitus hypertension and BPH is being seen for chronic disease. In 2020 he had serum creatinine 1.4. In December of 2021 creatinine bumped up a 3.9 with a potassium of 5.9. He was found to have BPH and underwent TURP. Serum creatinine is improved and recent creatinine is 2.2. Today has no new complaints other than vague back pain on and off especially at night- no change since last visit. No urinary symptoms. No dysuria urgency or hematuria. No leg edema. No specific complaints today. [facility] Medical History Mixed hyperlipidemia Type 2 diabetes mellitus Lower urinary tract infection Dyslipidemia Chronic fatigue Adenomatous colon polyp Surgical History Hx of cataract surgery (~09/2023) Family History Mother Hypertension Brother CKD (chronic kidney disease) Social History Alcohol intake: never Patient Tobacco Use Status: Current everyday Tobacco user Tobacco use type: Cigarette Cigarette Packs Per Day: 1 Cigarettes Per Day: 20 Physical Exam Vital Signs: Last Vital Signs Pulse 96 01/22/25 15:00 BP 120/68 01/22/25 15:00 Pulse Ox 96 01/22/25 15:00 Oxygen Delivery Method Room Air 01/22/25 15:00 BMI result Body Mass Index 33.5 Results Reviewed Results Reviewed: Cr down from 1.5 to 1.72 ( 01/14/25) Nephrology Results: Sodium 143 mmol/L 11/01/23 Potassium 4.9 mmol/L 11/01/23 Chloride 113 mmol/L 11/01/23 Carbon Dioxide 24 mmol/L 11/01/23 BUN 31 mg/dL 11/01/23 Creatinine 2.18 mg/dL 11/01/23 Calcium 9.0 mg/dL 11/01/23 Urine Creatinine 172.51 mg/dL 11/01/23 Assessment & Plan Assessment & Plan (1) CKD (chronic kidney disease) stage 3, GFR 30-59 ml/min: Code(s): N18.30 - Chronic kidney disease, stage 3 unspecified Category: Medical Plan: Chronic kidney disease due to the combination of obstructive uropathy and underlying hypertension Kidney disease. Overall renal function stable. Recent ultrasonogram did not reveal any evidence of obstruction. Keep AARON inhibitors for renal protection especially with microalbuminuria. monitor renal function periodically. Avoid NSAIDs. He would benefit from a SGLT 2 inhibitor. Recent ultrasonogram revealed a left-sided cyst. Possibility of a mild complex cyst. We will repeat ultrasonogram in the next 6-12 months for follow-up. If there is any changes in the cyst I would for him for urology. (2) Diabetes mellitus: Comment: Goals of maintaining hemoglobin A1c less than 7%. Code(s): E11.9 - Type 2 diabetes mellitus without complications Category: Medical Plan: . (3) HTN (hypertension): Code(s): I10 - Essential (primary) hypertension Category: Medical Plan: Blood pressure is well controlled Continue LISINOPRIL 10 mg daily Stay on low-sodium diet Orders: Orders Basic Metabolic Panel 5 Months N18.30 - Chronic kidney disease, stage 3 unspecified Coding Level of Care Code Est Pt Level 4 (62188) Diagnoses CKD (chronic kidney disease) stage 3, GFR 30-59 ml/min N18.30 Diabetes mellitus E11.9 HTN (hypertension) I10
--- OUTSIDE RECORDS SUMMARY | 2025-01-22 17:55 | XMS_ITS ---
Author Name [facility] Organization Unknown Care Team Organization Name Specialty Phone Email Start Date End Da [facility] ([facility]) NIMESH ENRIQUEZ, Primary Care 12/11/2024 [facility] 10/16/2024 12/18/19 25
--- OUTSIDE RECORDS SUMMARY | 2025-01-22 17:55 | XMS_ITS | Clinical Summary ---
Author Organization [facility] Address [address] [place] [address] Phone Care Team Providers Care Engine Monitor Name Role Phone Rakesh Marie MD Primary [...] fatigue 09/25/2016 02/24/2022 Dyslipidemia 09/25/2016 02/24/2022 Immunizations Immunization Administration Dates Next Due Influenza (IM) Preservative [...] Due Date Last Done Comments Pneumococcal Vaccine: 50+ Years (1 of 2 - PCV) 1968 Colorectal Cancer Screening: Annual FOBT 1998 Colorectal Cancer Screening: Colonoscopy 1998 Colorectal Cancer Screening: Sigmoidoscopy 1998 Influenza Vaccine (Season Ended) 2025 06/27/2017, 09/30/2016 Hepatitis B Vaccine Aged Out No longe r eligible based on patient's age to complete this topic Insurance Medicaid [place] [facility] Medicare Medicaid [place] [employer] Medicare Care Teams Engine Monitor Relationship Specialty Start Date End Date Rakesh Marie MD [address] [place] [address] PCP - General Internal Medicine 02/11/22
--- OUTSIDE RECORDS SUMMARY | 2025-01-22 17:55 | XMS_ITS | Clinical Summary ---
Author Organization [facility] Address [address] [place] [address] Care Team Providers Care Short Filler Bunch Machine Operator Name Role Phone Rakesh Marie MD Primary Care Provider [phone] Surgical History Surgery Date Site/Laterality Comments COLONOSCOPY PROCEDURE:COLONOSCOPY COLONOSCOPY 10/01/2020 N/A PROCEDURE:COLONOSCOPY;COMMENT:Procedure: COLONOSCOPY; Surgeon: Tony Sue MD; Location: [facility]; Service: Gastroenterology; Laterality: N/A; Medical History Medical History Date Comments BPH (benign prostatic hyperplasia) DX:BPH (benign prostatic hyperplasia) Hypertension DX:Hypertension Hyperlipidemia DX:Hyperlipidemi a Type 2 diabetes mellitus (CM S/HCC V24, CMS/HCC V28) DX:Type 2 diabetes mellitus (HCC) Family History Medical History Relation Name Comments Heart disease Mother Relation Name Status Comments Mother Social History Tobacco Use Types Packs/Day Years Used Date Smoking Tobacco: Every Day Cigarettes Smokeless Tobacco: Never Sex and Gender Information Value Date Recorded Sex Assigned at Not on file Legal Sex Male 10:21 AM EST Gender Identity Not on file Sexual Orientation Not on file Obstetrics History Plan of Treatment Health Maintenance Due Date Last Done Comments Diabetes: Annual GFR (Glomer ular Filtration Rate) 1949 Diabetes: Annual Foot Exam 1959 Diabetes: Annual Retina Eye Exam 1959 DTaP,Tdap,and Td Vaccines (1 - Tdap) 1968 Pneumococcal Vaccine: 50+ Ye ars (1 of 2 - PCV) 1968 Zoster Vaccines (1 of 2) 1999 [...] Vaccine ( - 2023-2 5 season) 2024 RSV Immunization Adult Patie nts (1 - 1-dose 75+ series) 2024 Influenza Vaccine (Season Ended) 2025 HIB Vaccines Aged Out No longer eligi [...] patient's age to complete this topic Meningococcal B Vaccine Aged Out No l onger eligible based on patient's age to complete this topic RSV Immunization Patients Un zora 20 months Aged Out No longer eligible b ased on patient's age to complete this topic Varicella Vaccines Aged Out No longer eligible based on patient's age to complete this topic Care Teams Short Filler Bunch Machine Operator Relationship Specialty Start Date End Date Rakesh Marie MD [address] [place] [phone] PCP - General Internal Medicine 08/09/16
--- OUTSIDE RECORDS SUMMARY | 2025-01-22 17:55 | XMS_ITS | Encounter Summary ---
Author Organization [facility] Address [address] [place] [address] Care Team Providers Care Tube Heater Name Role Phone Rakesh Marie MD Primary Care Provider [phone] Rakesh Marie MD Unavailable [phone] Encounter Details Date Type Department Care Team (Late st Contact Info) Description 02/15/2016 Scanned Document [facility] 80 [facility] [address] [place] [phone] Provider, Generic Social History Tobacco Use Types Packs/Day Years Used Date Smoking Tobacco: Never Assessed Sex and Gender Information Value Date Recorded Sex Assigned at Not on file Legal Sex Male 2:44 PM EST Gender Identity Not on file Sexual Orientation Not on file documented as of this encounter Plan of Treatment Not on file documented as of this encounter Procedures Procedure Name Priority Date/Time Associated Diagnosis Comments LAB RESULT 02/15/2016 documented in this encounter Results * LAB RESULT (02/15/2016) Narrative 02/15/2016 Ordered by an unspecified provider. us Generic Provider HX AMB PROCEDURES Final Result documented in this encounter Visit Diagnoses Not on filedocumented in this encounter Care Teams Tube Heater Relationship Specialty Start Date End Date Rakesh Marie MD PCP - General 09/27/16 Rakesh Marie MD [address] [place] [address] PCP - APNCT [place] Medicare Attributed 10/02/23 documented as of this encounter
--- OUTSIDE RECORDS SUMMARY | 2025-01-22 17:55 | XMS_ITS | Encounter Summary ---
Author Organization [facility] Address [address] [place] [address] Care Team Providers Care Shop Helper Name Role Phone Rakesh Marie MD Primary Care Provider [phone] Rakesh Marie MD Unavailable [phone] Encounter Details Date Type Department Care Team (Late st Contact Info) Description 10/25/2016 Scanned Document [facility] 80 [facility] [address] [place] [phone] Provider, Generic Social History Tobacco Use Types [...] on filedocumented in this encounter Care Teams Shop Helper Relationship Specialty Start Date End Date Rakesh Marie MD PCP - General 09/27/16 Rakesh Marie MD [address] [place] [address] PCP - APNCT [place] Medicare Attributed 1/1/24 documented as of this encounter
--- OUTSIDE RECORDS SUMMARY | 2025-01-22 17:55 | XMS_ITS | Clinical Summary ---
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 Care Teams Soap Maker Relationship Specialty Start Date End Date Rakesh Marie MD PCP - General Internal Medicine 08/09/16
--- OUTSIDE RECORDS SUMMARY | 2025-01-22 17:55 | XMS_ITS | Clinical Summary ---
Author Organization [address] Address [address] [place] [address] Care Team Providers Care Cutting And Creasing Press Operator Name Role Phone Rakesh Marie MD Primary Care Provider [phone] Allergies No known active allergies Medications albuterol [...] cancer screening, Colonoscopy 1994 Diabetes screening 1994 Pneumococcal Vaccine (50+ ye ars) (1 of 1 - PCV) 1999 Shingles vaccine (Shingrix) (1 of 2 - Shingrix (RZV) 2 Dose Standard Series) 1999 Covid-19 vaccine series ( - 2024-25 season) 2024 RSV Immunization (1 - 1-dose 75+ series) 2024 Influenza vaccine 06/02/2025 06/27/2017 Meningococcal Vaccine Aged Out No mayra ginger eligible based on patient's age to complete this topic Insurance [place] Care Teams Cutting And Creasing Press Operator Relationship Specialty Start Date End Date Rakesh Marie MD [address] [place] [address] PCP - General Internal Medicine 11/30/16
--- OUTSIDE RECORDS SUMMARY | 2025-01-22 17:55 | XMS_ITS | Clinical Summary ---
Author Organization [facility] Address [address] [place] [address] Care Team Providers Care Guest Services Assistant Name Role Phone Rakesh Marei MD Primary Care Provider [phone] Rakesh Marie MD Unavailable [phone] Allergies No known active allergies Medications albuterol (PROVENTIL HFA; VENTOLIN HFA) 108 (90 BASE) MCG/ACT inhalerIndicatio ns:Hyperglycemia Inhale 2 puffs 4 times daily (every 6 hours) as needed for wheezing. 1 Inhaler 1 09/30/2016 Active metFORMIN (GLUCOPHAGE) 1000 MG tabletIndication s:Hyperglycemia Take 1 tablet (1,000 mg total) by mouth 2 (two) times a day with meals. 60 tablet 1 09/30/2016 Active atenolol (TENORMIN) 50 MG tabletIndication s:Hyperglycemia Take 1 tablet (50 mg total) by mouth daily. 30 tablet 0 09/30/2016 Active fenofibrate (TRICOR) 145 MG tabletIndication s:Hyperglycemia Take 1 tablet (145 mg total) by mouth daily. 30 tablet 0 09/30/2016 Active levoFLOXacin (LEVAQUIN) 500 MG tabletIndication s:Hyperglycemia Take 1 tablet (500 mg total) by mouth every 24 hours around the clock. 6 tablet 0 09/30/2016 Active finasteride (PROSCAR) 5 MG tabletIndication s:Hyperglycemia Take 1 tablet (5 mg total) by mouth daily. 30 tablet 0 09/30/2016 Active tamsulosin (FLOMAX) 0.4 MG capsuleIndicatio ns:Hyperglycemia Take 1 capsule (0.4 mg total) by mouth every evening after dinner. 30 capsule 0 09/30/2016 Active sitaGLIPtin (JANUVIA) 100 MG tabletIndication s:Hyperglycemia Take 1 tablet (100 mg total) by mouth daily. 30 tablet 0 09/30/2016 Active insulin glargine (LANtus SOLOSTAR) 100 units/mL pen injectionIndicat ions:Hyperglycem ia Inject 0.24 mL (24 Units total) under the skin nightly. 7.2 mL 1 09/30/2016 Active choline fenofibrate (TRILIPIX) 45 MG capsule Take 45 mg by mouth daily. Active sodium-potassium -magnesium sulfates (Suprep Bowel Prep Kit) 17.5-3.13-1.6 GM/177ML Solution solutionIndicati ons:Adenomatous polyp of colon, unspecified part of colon [...] Date Resolved Date Fever 09/28/2016 12/14/2023 Immunizations Immunization Administration Dates Next Due Influenza Inactivated/Split Preservative [...] Vaccine 05/02/2024 09/30/2016 COVID-19 Vaccine ( - 2023- season) 2024 RSV Vaccine 60 years and [...] 6:03 AM EST 09/30/2016 6:49 AM EST Result [facility] Nayana Lozano MD LAB BLOOD ORDERABLES Final Result HOSPITAL LAB * (ABNORMAL) Hemoglobin A1c (09/28/2016 4:51 AM EST) Hemoglobin A1C 12.0(H) <5.7 % HOSPITAL LAB Comment: A1c% ? Interpretation 5.7 - 6.0 ?Increase risk of diabetes 6.1 - 6.4 ?Higher risk of diabetes > or = 6.5 ?? Consistent with diabetes Diabetes Care, 33(Supp 1):S1-S61, 2010 Blood specimen (specimen) Blood specimen / Unknown 09/28/2016 4:51 AM EST 09/28/2016 5:14 AM EST Dasiy Knutson MD LAB BLOOD ORDERABLES Final Result HOSPITAL LAB from Last 3 Months or Most Recently Relevant to Health Maintenance Insurance [facility] MEDICARE PART A & B MEDICARE PART A & B [facility] [place] [address] Advance Directives * Full Code (Latest Code Status on File) Date Activated Date Inactivated Comments 09/28/2016 1:36 AM 09/30/2016 3:43 PM Care Teams Guest Services Assistant Relationship Specialty Start Date End Date Rakesh Marie MD PCP - General 09/27/16 Rakesh Marie MD [address] [place] [address] PCP - APNCT [place] Medicare Attributed 10/02/23
== END 2025-01-22 15:13 | disposition home or self-care (01) ==
LOC: HO.HKAE 15:09
PROVIDERS: PCP Internal Medicine; Visit Provider Internal Medicine Hypertension Specialist
DX: N18.30 Chronic kidney disease, stage 3 unspecified (principal); E11.9 Type 2 diabetes mellitus without complications; I10 Essential (primary) hypertension
CPT/HCPCS: 99214

== ENCOUNTER → 2025-01-22 15:09 | Outpatient (BNVA) | payer MEDICARE, MEDICAID, SELFPAY | PROVIDERS: PCP Internal Medicine; Visit Provider Internal Medicine Hypertension Specialist | DX: E11.22 Type 2 diabetes mellitus with diabetic chronic kidney disease (principal); I12.9 Hypertensive chronic kidney disease with stage 1 through stage 4 chronic kidney disease, or unspecified chronic kidney disease; N18.30 Chronic kidney disease, stage 3 unspecified | CPT/HCPCS: 99212 ==

== ENCOUNTER 2025-07-23 14:01 | Outpatient (AMB) | payer MEDICARE, MEDICAID, SELFPAY ==
[2025-07-23 14:03] VITALS: BP 130/72; PULSE 73; O2SAT 98; BMI 33.8
--- NOTE | 2025-07-23 14:03 | HO.NEPHOV_ITS ---
Vital Signs 07/23/25 14:03 Height 5 ft 4 in Weight 197 lb BMI 33.8 BP 130/72 Blood Pressure Location Lt brachial Position Sitting Pulse 73 Pulse Source Pulse Oximeter Pulse Oximetry (%) 98 Oxygen Delivery Method Room Air Intake Visit Reasons: 6mon follow-up w/labs confirmed Airport Maintenance Chief Required: No Accompanied by: Self / Same As Patient Allergies No Known Allergies Allergy (Verified 07/23/25 14:05) Medication List - Last Reconciled 07/23/25 by Lul Mcgill MD albuterol sulfate 90 mcg/actuation 2 puffs inhalation Q6H fenofibrate nanocrystallized 145 mg PO DAILY finasteride 5 mg PO DAILY metformin 500 mg PO BIDWMEAL HPI Comments Details: 74-year-old man with a history of diabetes mellitus hypertension and BPH is being seen for chronic disease. In 2020 he had serum creatinine 1.4. In December of 2021 creatinine bumped up a 3.9 with a potassium of 5.9. He was found to have BPH and underwent TURP. Serum creatinine is improved and recent creatinine is 2.2. Today has no new complaints other than vague back pain on and off especially at night- no change since last visit. No urinary symptoms. No dysuria urgency or hematuria. No leg edema. No specific complaints today. 07/23/25 - The patient is a 74-year-old male with CKD and DM - Hypertension: Off Lisinopril due to low BP. - Low back pain: Pain exacerbated by cold, uses Tylenol, avoids NSAIDs. - Smoking: Smoker, intends to quit. PFSH Medical History Mixed hyperlipidemia Type 2 diabetes mellitus Lower urinary tract infection Dyslipidemia Chronic fatigue Adenomatous colon polyp Surgical History Hx of cataract surgery (~09/2023) Family History Mother Hypertension Brother CKD (chronic kidney disease) Social History Alcohol intake: never Patient Tobacco Use Status: Current everyday Tobacco user Tobacco use type: Cigarette Cigarette Packs Per Day: 1 Cigarettes Per Day: 20 Physical Exam Vital Signs: Last Vital Signs Pulse 73 07/23/25 14:03 BP 130/72 07/23/25 14:03 Pulse Ox 98 07/23/25 14:03 Oxygen Delivery Method Room Air 07/23/25 14:03 BMI result Body Mass Index 33.8 Const General: comfortable Nutritional Appearance: well nourished Orientation/consciousness: patient oriented x3 HEENT Head: No normal to inspection Mouth: moist mucous membranes Neck Neck: Yes supple and Yes no JVD Resp Auscultation: clear to auscultation bilaterally, no rales and rub present Cardio Jugular venous distension: no JVD Palpation: no palpable S3 and no palpable S4 Heart sounds: no rubs GI Palpation (GI): Soft to palpation and nontender Percussion: No Fluid wave present General: Yes no CVA tenderness Back/Spine/Pelvis Back: no CVA tenderness Skin General skin exam: no rashes or lesions noted Neuro General: patient oriented x3 Extrem General: Yes no pedal edema and No clubbing Results Reviewed Results Reviewed: Jun 2025 BUN/Cr : 35/ 2.27 Nephrology Results: Sodium 143 mmol/L 11/01/23 Potassium 4.9 mmol/L 11/01/23 Chloride 113 mmol/L 11/01/23 Carbon Dioxide 24 mmol/L 11/01/23 BUN 31 mg/dL 11/01/23 Creatinine 2.18 mg/dL 11/01/23 Calcium 9.0 mg/dL 11/01/23 Urine Creatinine 172.51 mg/dL 11/01/23 Assessment & Plan Assessment & Plan (1) CKD (chronic kidney disease) stage 3, GFR 30-59 ml/min: Code(s): N18.30 - Chronic kidney disease, stage 3 unspecified Category: Medical Plan: Chronic kidney disease due to the combination of obstructive uropathy and underlying hypertension Kidney disease. Overall renal function stable. Recent ultrasonogram did not reveal any evidence of obstruction. Keep AARON inhibitors for renal protection especially with microalbuminuria. monitor renal function periodically. Avoid NSAIDs. He would benefit from a SGLT 2 inhibitor. Recent ultrasonogram revealed a left-sided cyst. Possibility of a mild complex cyst. We will repeat ultrasonogram - reordered If there is any changes in the cyst I would for him for urology. (2) Diabetes mellitus: Comment: Goals of maintaining hemoglobin A1c less than 7%. Code(s): E11.9 - Type 2 diabetes mellitus without complications Category: Medical Plan: . (3) HTN (hypertension): Code(s): I10 - Essential (primary) hypertension Category: Medical Plan: Blood pressure is well controlled OFF LISINOPRIL Stay on low-sodium diet Orders: Orders Comprehensive Met. Panel 4 Months I10 - Essential (primary) hypertension, N18.30 - Chronic kidney disease, stage 3 unspecified Complete Blood Count no Diff 4 Months I10 - Essential (primary) hypertension, N18.30 - Chronic kidney disease, stage 3 unspecified UA and rflx microscopic 4 Months I10 - Essential (primary) hypertension, N18.30 - Chronic kidney disease, stage 3 unspecified Creatinine Urine 4 Months I10 - Essential (primary) hypertension, N18.30 - Chronic kidney disease, stage 3 unspecified Parathyroid Hormone Intact 4 Months I10 - Essential (primary) hypertension, N18.30 - Chronic kidney disease, stage 3 unspecified Total Protein Urine Random 4 Months I10 - Essential (primary) hypertension, N18.30 - Chronic kidney disease, stage 3 unspecified US renal BI Today N28.1 - Cyst of kidney, acquired Coding Level of Care Code Est Pt Level 4 (72425) Diagnoses CKD (chronic kidney disease) stage 3, GFR 30-59 ml/min N18.30 Diabetes mellitus E11.9 HTN (hypertension) I10
--- OUTSIDE RECORDS SUMMARY | 2025-07-23 20:11 | XMS_ITS | Encounter Summary ---
Author Organization [facility] Address [address] [place] [address] Care Team Providers Care Label Folder Name Role Phone Rakesh Marie MD Primary Care Provider Rakesh Marie MD Unavailable [phone] Encounter Details Date Type Department Care Team (Late st Contact Info) Description 10/25/2016 Scanned Document [facility] 80 [facility] [address] [place] [phone] Provider, Generic Social History Tobacco Use Types [...] on filedocumented in this encounter Care Teams Label Folder Relationship Specialty Start Date End Date Rakesh Marie MD PCP - General 09/27/16 Rakesh Marie MD [address] [place] [address] PCP - APNCT [place] Medicare Attributed 1/1/24 documented as of this encounter
--- OUTSIDE RECORDS SUMMARY | 2025-07-23 20:11 | XMS_ITS | Clinical Summary ---
Author Organization [address] Address [address] [place] [phone] Care Team Providers Care Public Health Veterinarian Name Role Phone Rakesh Marie MD Primary Care Provider [phone] Allergies No known active allergies Medications albuterol [...] Conjunctival lesion - Left Eye 12/07/2016 Immunizations Immunization Administration Dates Next Due Influenza, high-dose, split [...] 65 01/11/2017 10:34 AM EDT Temperature 36.7 C (98.1 F) 01/11/2017 10:34 AM EDT Respiratory Rate 19 01/11/2017 10:34 AM EDT [...] Shingrix (RZV) 2 Dose Standard Series) 1999 RSV Immunization (1 - 1-dose 75+ series) 2024 Influenza vaccine 05/02/2025 06/27/2017 Covid-19 vaccine series (2024- season) 2025 Meningococcal B Vaccine Aged Out No l onger eligible based on patient's age to complete this topic Meningococcal Vaccine Aged Out No mayra ginger eligible based on patient's age to complete this topic Insurance [place] Care Teams Public Health Veterinarian Relationship Specialty Start Date End Date Rakesh Marie MD [address] [facility] [address] [place] [phone] PCP - General Internal Medicine 11/30/16
--- OUTSIDE RECORDS SUMMARY | 2025-07-23 20:11 | XMS_ITS | Clinical Summary ---
Author Organization [facility] Address [address] [place] [address] Care Team Providers Care Pharmaceutical Salesperson Name Role Phone Rakesh Marie MD Primary Care Provider [phone] Allergies No known active allergies Medications Medication [...] 3 05/17/2018 Active Blood Glucose Monitoring Suppl (ADCentricity VERIO) w/Device KITIndications:Type II diabetes mellitus with [...] 59 10/01/2020 10:50 AM EST Temperature 36.1 C (97 F) 10/01/2020 10:50 AM EST Respiratory Rate 10 [...] 05/17/2019, 0 02/23/2018, 10/27/2017, Additional history exists RSV Adult > 60+ Yrs or (1 - 1-dose 75+ series) 2024 Influenza Vaccine (#1) 2025 06/27/2017, 2015 Colon Cancer Screening (Colonoscopy) 10/01/2030 10/01/2020 Hepatitis B Vaccines Aged Out No long er eligible based on patient's age to complete this topic RSV Ped < 20 months Aged Out No longe r eligible based on patient's age to complete this topic Advance Directives For more information, please contact: [phone] Documents on File Type Date Recorded 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 Care Teams Pharmaceutical Salesperson Relationship Specialty Start Date End Date Rakesh Marie MD PCP - General Internal Medicine 08/09/16
--- OUTSIDE RECORDS SUMMARY | 2025-07-23 20:11 | XMS_ITS | Encounter Summary ---
Author Organization Formerly [facility] Address [address] [place] [address] Care Team Providers Care Bus Operator Name Role Phone Rakesh Marie MD Primary Care Provider [phone] Rakesh Marie MD Unavailable [phone] Encounter Details Date Type Department Care Team (Late st Contact Info) Description 02/15/2016 Scanned Document [facility] [address] [facility] [address] [place] [phone] Provider, Generic Social History Tobacco Use Types [...] on filedocumented in this encounter Care Teams Bus Operator Relationship Specialty Start Date End Date Rakesh Marie MD PCP - General 09/27/16 Rakesh Marie MD [address] [place] [address] PCP - APNCT [place] Medicare Attributed 10/02/23 documented as of this encounter
--- OUTSIDE RECORDS SUMMARY | 2025-07-23 20:11 | XMS_ITS | Clinical Summary ---
Author Organization [facility] Address [address] [place] [address] Care Team Providers Care Asset Liability Analyst Name Role Phone Rakesh Marie MD Primary Care Provider [phone] Rakesh Marie MD Unavailable [phone] Allergies No known active allergies Medications [...] 64 09/30/2016 9:48 AM EST Temperature 35.9 C (96.7 F) 08/13/2020 2:55 PM EST Respiratory Rate 15 10/24/2016 2:04 PM EST Oxygen Saturation 94% 09/30/2016 8:21 AM EST Inhaled Oxygen Concentration - - Weight 94.3 kg (208 lb) 08/13/2020 2:55 PM EST Height 165.1 cm (5' 5 ) 08/13/2020 2:55 PM EST Body Mass Index 34.61 08/13/2020 2:55 PM EST Plan of Treatment Health Maintenance Due Date Last Done Comments Advance Care Planning 1950 Hepatitis C Virus Screening 1950 Foot Exam 1959 Lipid Panel 1959 Ophthalmology Exam 1959 Microalbumin/Creatinine Ratio Urine 1967 DTaP/Tdap/Td Vaccines (1 - Tdap) 1968 Pneumococcal Vaccines 50+ (1 of 2 - PCV) 1968 Colonoscopy 1994 Zoster (Shingles) Vaccine (1 of 2) 1999 Hemoglobin A1C 03/29/2017 09/28/2016 Creatinine with GFR 09/30/2017 09/30/2016, 09/29/2016, 09/28/2016, Additional history exists RSV Vaccine 50 years and older and Patients (1 - 1-dose 75+ series) 2024 Influenza Vaccine 05/02/2025 09/30/2016 COVID-19 Vaccine ( - season) 2025 Hepatitis B Vaccines Aged Out No long er eligible based on patient's age to complete this topic Procedures Procedure Name Priority Date/Time Associated Diagnosis Comments BASIC METABOLIC PANEL Routine 09/30/2016 6:03 AM EST HEMOGLOBIN A1C Routine 09/28/2016 4:51 AM EST from Last 3 Months or Most Recently Relevant to Health Maintenance Results * Basic Metabolic Panel (09/30/2016 6:03 AM EST) [facility] Signature Glucose 78 65 - 99 mg/dL [facility] Comment:Fasting: <100 mg/dL, Non-Fasting: <200 mg/dL (ADA 2004) Blood Urea Nitrogen (BUN) 16 8 - [...] 6:03 AM EST 09/30/2016 6:49 AM EST us Nayana Lozano MD LAB BLOOD ORDERABLES Final Result [facility]ITAL [facility] * (ABNORMAL) Hemoglobin A1c (09/28/2016 4:51 AM EST) Hemoglobin A1C 12.0(H) <5.7 % [facility]ITAL [facility] Comment: A1c% Interpretation 5.7 - 6.0 Increase risk of diabetes 6.1 - 6.4 Higher risk of diabetes > or = 6.5 Consistent with diabetes Diabetes Care, 33(Supp 1):S1-S61, 2010 Blood specimen (specimen) Blood specimen / Unknown 09/28/2016 4:51 AM EST 09/28/2016 5:14 AM EST us Daisy Knutson MD LAB BLOOD ORDERABLES Final Result [facility] from Last 3 Months or Most Recently Relevant to Health Maintenance Insurance [facility] MEDICARE PART A & B MEDICARE PART A [place] [id number] Advance Directives * Full Code (Latest Code Status on File) Date Activated Date Inactivated Comments 09/28/2016 1:36 AM 09/30/2016 3:43 PM Care Teams Asset Liability Analyst Relationship Specialty Start Date End Date Rakesh Marie MD PCP - General 09/27/16 Rakesh Marie MD [address] [place] [address] PCP - APNCT [place] Medicare Attributed 10/02/23
--- OUTSIDE RECORDS SUMMARY | 2025-07-23 20:11 | XMS_ITS | Clinical Summary ---
Author Organization [facility] Address [address] [place] [address] Care Team Providers Care Brooch Maker Novelty Name Role Phone Rakesh Marie MD Primary Care Provider [phone] Surgical History Surgery Date Site/Laterality Comments COLONOSCOPY PROCEDURE:COLONOSCOPY COLONOSCOPY 10/01/2020 N/A PROCEDURE:COLONOSCOPY;COMMENT:Procedure: COLONOSCOPY; Surgeon: Tony Sue MD; Location: [facility]; Service: Gastroenterology; Laterality: N/A; Medical History [...] on file Obstetrics History Plan of Treatment Upcoming Encounters Date Type Department Care Team ([facility] Contact Info) Description 08/07/2025 9:00 AM EST Procedure visit [facility] [place] [address] [place] [phone] Mani Chacon MD [address], [address] [place] [address] Health Maintenance Due Date Last Done Comments Colorectal Cancer Screening: Colonoscopy 1950 Diabetes: Annual GFR (Glomer ular Filtration Rate) 1949 Diabetes: Annual Foot Exam 1959 Diabetes: Annual Retina Eye Exam 1959 DTaP,Tdap,and Td Vaccines (1 - Tdap) 1968 Pneumococcal Vaccine: 50+ Ye ars (1 of 2 - PCV) 1968 Zoster Vaccines (1 of 2) 1999 Abdominal Aortic Aneurysm (A AA) Screen 08/30/2022 Cholesterol Screening (Lipid Panel) 08/30/2022 Falls Risk Assessment 08/30/2022 Hepatitis C Screening 08/30/2022 Social Influencers of Health Screening 08/30/2022 Diabetes: Annual Urine Albumin-Creatinine Ratio (uACR) 09/19/2022 Diabetes: Blood Sugar Contro l Test (HGBA1C) 09/19/2022 Hypertension/CHF/CAD Annual BMP Blood Test 09/19/2022 Depression Screening 10/02/2024 RSV Immunization Adult Patie nts (1 - 1-dose 75+ series) 2024 COVID-19 Vaccine (1 - 2023-2 5 season) 2025 Influenza Vaccine (#1) 2025 HIB Vaccines Aged Out No longer [...] age to complete this topic Care Teams Brooch Maker Novelty Relationship Specialty Start Date End Date Rakesh Marie MD [address] [place] [phone] PCP - General Internal Medicine 08/09/16
== END 2025-07-23 14:18 | disposition home or self-care (01) ==
LOC: HO.HKAE 14:02
PROVIDERS: PCP Internal Medicine; Visit Provider Internal Medicine Hypertension Specialist
DX: N18.30 Chronic kidney disease, stage 3 unspecified (principal); E11.9 Type 2 diabetes mellitus without complications; I10 Essential (primary) hypertension
CPT/HCPCS: 99214

== ENCOUNTER → 2025-07-23 14:01 | Outpatient (BNVA) | payer MEDICARE, MEDICAID, SELFPAY | PROVIDERS: PCP Internal Medicine; Visit Provider Internal Medicine Hypertension Specialist | DX: I10 Essential (primary) hypertension (principal); E11.9 Type 2 diabetes mellitus without complications; N18.30 Chronic kidney disease, stage 3 unspecified | CPT/HCPCS: 99212 ==